=== PATIENT | female | born 1950 | race Caucasian/White ===

== ENCOUNTER → 2017-04-14 | Outpatient (CLI) | payer OTHER ==
[~2017-04-14] MED LIST: ASPIR 8181 MG PO; CIPRO500 MG PO; DIOVAN HCT 80-1 EACH PO; FISH OIL 1,001000 M2 PO; FLAGYL500 MG PO; MIRALAX17 GM PO; VITAMIN D1000 UNI1 PO
== END ==
LOC: M.RAD 04-08 16:00
DX: N91.2 Amenorrhea, unspecified (principal); R29.890 Loss of height; M17.10 Unilateral primary osteoarthritis, unspecified knee; Z78.0 Asymptomatic menopausal state

== ENCOUNTER → 2017-08-10 | Outpatient (CLI) | payer OTHER | LOC: M.CT 08-09 09:00 | DX: Z13.6 Encounter for screening for cardiovascular disorders (principal) ==

== ENCOUNTER 2017-08-20 12:16 | Inpatient (IN) | payer OTHER ==
[~2017-08-20] VITALS: Ht 162.6 cm; Wt 107.5 kg
--- NOTE | ~2017-08-20 | PROC ---
[address] [address] PROCEDURE REPORT Name: VIKTOR BETTS Room: [address] IN M.R.#: [id number] Admission: 08/20/17 Attend Phys: Jonathan Tracey MD Discharge: 08/22/17 Date of : 48 Report #: [id number] THIS REPORT FOR: //name// For GI report, please see the Provation report in Perceptive 7 content. By: 0701Medical Records Staff FELISA /CALDERON
[2017-08-20 12:49] LABS: ABSOLUTE BASOPHILS 0.1 thou/uL (0.0-0.2); ABSOLUTE EOSINOPHILS 0.1 thou/uL (0.0-0.7); ABSOLUTE LYMPHOCYTES 2.4 thou/uL (0.8-5.3); ABSOLUTE MONOCYTES 0.5 thou/uL (0.0-1.2); ABSOLUTE NEUTROPHILS 7.7 thou/uL (1.6-8.1); BASOPHILS 0.8 %; EOSINOPHILS 0.6 %; HEMATOCRIT 41.4 % (37.0-47.0); HEMOGLOBIN 13.8 gm/dL (12.0-15.0); LYMPHOCYTES 22.4 %; MCH 27.8 pg (26.0-34.0); MCHC 33.3 g/dL (28.0-37.0); MCV 83.7 fL (80.0-100.0); MPV 8.3 fl. (7.2-11.1); NUCLEATED RBCS 0 /100WBC; PLATELET COUNT* 219 thou/uL (150-400); POLYS 71.2 %; RBC 4.95 mil/uL (4.20-5.00); RDW-CV 12.9 % (10.5-14.5); WBC 10.8 thou/uL (4.0-11.0)
[2017-08-20 13:05] LABS: CALCIUM 8.9 mg/dL (8.5-10.1); CREATININE 0.8 mg/dL (0.6-1.3); POTASSIUM 3.2 mmol/L (3.5-5.1)
[2017-08-20 13:10] LABS: ALBUMIN 3.6 g/dL (3.4-5.0); TOTAL BILIRUBIN 0.7 mg/dL (<0.1-1.0); TOTAL PROTEIN 7.1 g/dL (6.4-8.2)
[2017-08-20 16:08] VITALS: BP 143/51
[2017-08-20] MEDS ORDERED: DIOVAN HCT 80-1 EACH PO (16:55)
[2017-08-20] MEDS ORDERED: VITAMIN D1000 UNI1 PO (16:56)
[2017-08-20] MEDS ORDERED: ASPIR 8181 MG PO (16:56)
[2017-08-20] MEDS ORDERED: FISH OIL 1,001000 M2 PO (16:57)
[2017-08-20 23:26] VITALS: BP 138/62
[2017-08-21 04:32] LABS: ABSOLUTE EOSINOPHILS 0.2 thou/uL (0.0-0.7); ABSOLUTE LYMPHOCYTES 2.7 thou/uL (0.8-5.3); ABSOLUTE MONOCYTES 0.6 thou/uL (0.0-1.2); ABSOLUTE NEUTROPHILS 6.8 thou/uL (1.6-8.1); BASOPHILS 0.3 %; EOSINOPHILS 1.5 %; HEMATOCRIT 40.8 % (37.0-47.0); HEMOGLOBIN 13.4 gm/dL (12.0-15.0); LYMPHOCYTES 26.3 %; MCH 27.4 pg (26.0-34.0); MCHC 32.9 g/dL (28.0-37.0); MCV 83.1 fL (80.0-100.0); MONOCYTES 5.7 %; MPV 8.7 fl. (7.2-11.1); NUCLEATED RBCS 0 /100WBC; PLATELET COUNT* 196 thou/uL (150-400); POLYS 66.2 %; RBC 4.91 mil/uL (4.20-5.00); RDW-CV 12.8 % (10.5-14.5); WBC 10.3 thou/uL (4.0-11.0)
[2017-08-21 04:43] LABS: CALCIUM 8.4 mg/dL (8.5-10.1); CREATININE 0.9 mg/dL (0.6-1.3); POTASSIUM 3.3 mmol/L (3.5-5.1)
[2017-08-21 08:00] VITALS: BP 135/55
[2017-08-21 16:00] VITALS: BP 175/72
[2017-08-21 23:26] VITALS: BP 119/46
[2017-08-22 00:35] VITALS: BP 119/46
[2017-08-22 03:59] LABS: ABSOLUTE EOSINOPHILS 0.2 thou/uL (0.0-0.7); ABSOLUTE LYMPHOCYTES 2.3 thou/uL (0.8-5.3); ABSOLUTE MONOCYTES 0.4 thou/uL (0.0-1.2); ABSOLUTE NEUTROPHILS 4.7 thou/uL (1.6-8.1); BASOPHILS 0.6 %; EOSINOPHILS 3.2 %; HEMATOCRIT 38.2 % (37.0-47.0); HEMOGLOBIN 12.5 gm/dL (12.0-15.0); LYMPHOCYTES 29.7 %; MCH 27.2 pg (26.0-34.0); MCHC 32.7 g/dL (28.0-37.0); MCV 83.3 fL (80.0-100.0); MONOCYTES 5.8 %; MPV 8.6 fl. (7.2-11.1); NUCLEATED RBCS 0 /100WBC; PLATELET COUNT* 197 thou/uL (150-400); POLYS 60.7 %; RBC 4.59 mil/uL (4.20-5.00); RDW-CV 12.9 % (10.5-14.5); WBC 7.7 thou/uL (4.0-11.0)
[2017-08-22 04:13] LABS: ALBUMIN 2.9 g/dL (3.4-5.0); CALCIUM 8.2 mg/dL (8.5-10.1); CREATININE 0.8 mg/dL (0.6-1.3); POTASSIUM 3.4 mmol/L (3.5-5.1); TOTAL BILIRUBIN 0.4 mg/dL (<0.1-1.0); TOTAL PROTEIN 5.4 g/dL (6.4-8.2)
[2017-08-22 11:23] VITALS: BP 119/46
[2017-08-22] MEDS ORDERED: CIPRO500 MG PO (11:26)
[2017-08-22] MEDS ORDERED: FLAGYL500 MG PO (11:27)
[2017-08-22] MEDS ORDERED: MIRALAX17 GM PO (11:28)
--- NOTE | 2017-08-22 15:54 | EKG ---
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1950 Requested By: Jam Botello Order Number: [id number] Xochitl MD: Noel Dunaway Measurements Intervals Vivian Rate: 61 P: 65 DE: 208 QRS: 71 QRSD: 105 T: 32 QT: 467 QTc: 471 Interpretive Statements Sinus rhythm Low voltage, precordial leads Incomplete right bundle-branch block No previous ECG available for comparison Electronically Signed On 08-22-2017 15:54:22 CDT by Noel Dunaway [email or web address] <ELECTRONICALLY SIGNED> By: Noel Dunaway MD, [facility] 08/22/17 1554 1514 13 Noel Dunaway MD, [facility] /EPI
--- NOTE | 2017-08-23 08:22 | CON ---
[address] [address] CONSULTATION Name: VIKTOR BETTS Room: [address] IN .R.#: [id number] Admission: 08/20/17 Attend Phys: Jonathan Tracey MD Discharge: 08/22/17 Date of : 48 Report #: [id number] THIS REPORT FOR: //name// CC: Jonathan Broderick Satinder Ashleykarleslie DATE OF SERVICE: 08/21/2017 REASON FOR CONSULTATION: Hematochezia and colitis per CT. HISTORY OF PRESENT ILLNESS: This is a 66-year-old female with history of colonoscopy back in 2007, which was significant for diverticulosis. The patient reports that she has regular bowel movements and she may have 3 stools per day. She denies use of NSAIDs and PPIs. She presents with abdominal pain, which started yesterday and progressively got worse. She was concerned when she had hematochezia. CT scan suggestive of thickening of the colon in the descending and sigmoid colon. There is also evidence of diverticulosis without diverticulitis. PAST MEDICAL HISTORY: Significant for history of hypertension, diverticulosis, C-sections x 2, tonsillectomy, hammertoe repair. ALLERGIES: SIGNIFICANT TO VANCOMYCIN. MEDICATIONS: Please refer to hospital MAR. SOCIAL HISTORY: The patient is and lives at home. Denies tobacco or alcohol use. FAMILY HISTORY: Negative for GI malignancy. PHYSICAL EXAMINATION: VITAL SIGNS: Reveals blood pressure of 135/55, respirations 16, pulse 58, temperature 97.9. LUNGS: Clear. CARDIOVASCULAR: Regular. ABDOMEN: Soft, mildly tender to palpation in the left quadrant. Bowel sounds are positive. LABORATORY DATA: Reveal sodium of 143, potassium 3.3, BUN is 8, creatinine 0.9, AST is 21, ALT is 33, calcium 8.4. WBC is 10.3, hemoglobin of 13.4 with platelet of 196. Liver function tests are all within normal limits. IMAGING: [place] [address] CONSULTATION Name: VIKTOR BETTS Room: [address] IN ..#: [id number] Admission: 08/20/17 Attend Phys: Jonathan Tracey MD Discharge: 08/22/17 Date of : 48 Report #: [id number] ASSESSMENT AND PLAN: The patient with acute abdominal pain and hematochezia, CT suggestive of colitis. We will go ahead and perform a colonoscopy since her last colonoscopy was 10 years ago. Meanwhile, she has been started on IV antibiotics for suspected colonic ischemia. We will continue it at this time. We will make recommendation after the colonoscopy is complete tomorrow. <ELECTRONICALLY SIGNED> By: Jam Botello MD 08/23/17 0822 1223 1946Jam Botello MD /nt
--- NOTE | 2017-11-24 12:05 | PATH ---
[address] [address] PATHOLOGY RPT PROCEDURE Name: YUMIKO BETTS Room: [address] IN M.R.#: [id number] Admission: 08/20/17 Date of : 48 Discharge: 08/22/17 Report #: [id number] Path Case #: [id number] [facility] Accession Number: [id number] . 01 Material submitted: . LEFT COLON BIOPSIES HIGHLY SUSPICIOUS FOR COLONIC ISCHEMIA . 01 Clinical history: . Highly suspicious for colonic ischemia . 02 Diagnosis: Left colon biopsies: - Active colitis with mucosal atrophy and necrosis typical of ischemic colitis, negative for granulomas, viral inclusions and dysplasia. See comment. LBQ/08/25/2017 . 02 Comment: The biopsies reveal benign colonic mucosa with active inflammation evidenced by neutrophils in the lamina propria, submucosa and scattered cryptitis and there is prominent mucosal atrophy with preservation of the deeper aspects of the crypts as well as focal mucosal necrosis and condensation of the lamina propria along with fresh hemorrhage. There is no significant crypt distortion or basal lymphoplasmacytosis to raise a suspicion of inflammatory bowel disease. (LYNN:db; 08/25/2017) . 02 Electronically signed: . Florin Aguero MD, Pathologist NPI- [id number] . 01 Gross description: . Received in formalin labeled "Yumiko Betts, left colon biopsies, highly suspicious of colonic ischemia," are five pieces of zaragoza soft tissue measuring 0.8 x 0.7 x 0.3 cm in aggregate dimensions and ranging from 0.2 to 0.8 cm in maximum dimension. The specimen is submitted entirely in cassette A1. (DAC; 08/24/2017) XDC/XDC . 02 Pathologist provided ICD-10: K52.9 . 02 CPT . 699318 Performed at: [address] [id number] [address] [address] PATHOLOGY RPT PROCEDURE Name: YUMIKO BETTS Room: [address] IN .R.#: [id number] Admission: 08/20/17 Date of : [birth year] Discharge: 08/22/17 Report #: [id number] Path Case #: [id number] MD Antonio Arzate MD Phone: [phone] Performed at: [address], [place] [id number] MD Florin Aguero MD Phone: [phone]
== END 2017-08-22 12:24 | disposition home or self-care (01) | DRG 371 ==
LOC: M.LAB 12:16 → M.CT 12:30 → M.3W 15:58
PROVIDERS: Family Medicine; ADMIT Internal Medicine
DX: A04.9 Bacterial intestinal infection, unspecified (principal); K55.039 Acute (reversible) ischemia of large intestine, extent unspecified; K57.31 Diverticulosis of large intestine without perforation or abscess with bleeding; K92.2 Gastrointestinal hemorrhage, unspecified; E87.6 Hypokalemia; I10 Essential (primary) hypertension; L53.9 Erythematous condition, unspecified; K64.8 Other hemorrhoids; Z79.2 Long term (current) use of antibiotics; Z88.1 Allergy status to other antibiotic agents; Z98.890 Other specified postprocedural states

== ENCOUNTER → 2017-10-18 | Outpatient (CLI) | payer OTHER | LOC: M.LAB 10:32 | DX: Z01.812 Encounter for preprocedural laboratory examination (principal); I10 Essential (primary) hypertension ==

== ENCOUNTER → 2019-05-09 | Outpatient (CLI) | payer MEDICARE, OTHER | LOC: M.RAD 13:15 | DX: Z78.0 Asymptomatic menopausal state (principal) ==